=== PATIENT | male | born 1975 | race Caucasian/White ===

== ENCOUNTER 2016-12-31 22:05 | Emergency (ER) | payer SELFPAY ==
[~2016-12-31 22:05] MED LIST: ALBUTEROL20 ml INH; AZITHROMYCIN250 MG PO; AZITHROMYCIN500 MG PO; BENZONATATE PO; FOLIC ACID PO; MEDROL DOSEPAK4 MG PO; MELOXICAM15 MG PO; MOBIC15 MG PO; MULTI-VITAMIN1 EAC1 PO; NICOTINE TRANSD21 MG EXT; NO MEDICATIONS; ROBITUSSIN A-C S5 ML PO; THIAMINE HCL100 M1 PO
== END 2016-12-31 23:09 | disposition home or self-care (01) ==
LOC: CED 22:05
DX: R04.2 Hemoptysis (principal); F17.210 Nicotine dependence, cigarettes, uncomplicated
CPT/HCPCS: 99284

== ENCOUNTER 2017-01-18 09:12 | Emergency (ER) | payer SELFPAY ==
[2017-01-18] MEDS ORDERED: NO MEDICATIONS (09:18)
[2017-01-18 10:10] LABS: BILIRUBIN, DIRECT 0.1 mg/dL (0.0-0.2); BILIRUBIN,INDIRECT 0.8 mg/dL (0.0-0.9); BILIRUBIN,TOTAL 0.9 mg/dL (0.2-2.0); BUN/CREATININE RATIO 11.66; CALCIUM SERUM 8.7 mg/dL (8.4-10.2); CREATININE SERUM 0.6 mg/dL (0.6-1.4); GLOM FILT RATE Estimated 124.9 mL/min (>60); POTASSIUM 3.8 mmol/L (3.5-5.1); PROTEIN TOTAL SERUM 8.1 g/dL (6.0-8.3)
[2017-01-18 10:13] LABS: BASOPHIL% 0.8 % (0-2.5); EOSINOPHIL% 0.2 % (0.0-7.0); HEMATOCRIT 45.9 % (38.0-50.0); HEMOGLOBIN 16.2 gm/dL (13.0-16.0); LYMPHOCYTE# 1.1 X10e3 (1.0-3.5); MEAN CELL VOLUME 101.1 FL (83-96); MEAN CORPUSCULAR HEMOGLOBIN 35.6 PG (28-34); MEAN CORPUSCULAR HGB CONC 35.2 g/dL (30-36); MEAN PLATELET VOLUME 7.2 FL (6.5-11.5); MONOCYTE# 0.6 X10e3 (0-1.0); MONOCYTE% 13.2 % (3.0-12.0); NEUTROPHIL# 2.6 X10e3 (1.5-7.1); NEUTROPHIL% 60.8 % (40-75); PLATELET COUNT 173 X10e3 (140-420); RED BLOOD COUNT 4.54 X10e (3.90-5.60); RED CELL DISTRIBUTION WIDTH 13.2 % (11.0-15.5); WHITE BLOOD COUNT 4.3 X10e3 (4.0-10.5)
[2017-01-18 10:14] LABS: DIFF IND NO
== END 2017-01-18 11:16 | disposition home or self-care (01) ==
LOC: SED 09:12
PROVIDERS: Emergency Medicine
DX: K92.2 Gastrointestinal hemorrhage, unspecified (principal); R04.0 Epistaxis; F17.210 Nicotine dependence, cigarettes, uncomplicated
CPT/HCPCS: 36415; 80048; 80076; 83690; 85025; 96361; 96374; 96375; 99283; C9113; J2405

== ENCOUNTER 2017-03-06 22:49 | Emergency (ER) | payer SELFPAY ==
[~2017-03-06] VITALS: Ht 182.9 cm; Wt 63.5 kg
--- NOTE | ~2017-03-06 | CR173 ---
[facility]. [facility] A Service of [facility] & [facility] RADIOLOGY TEXT RESULTS PATIENT: MELISA LINARES JR LOCATION: SED : 75 UNIT #: [id number] AGE: [address]: Angelica Minor SEX: M ORDER DR: [id number] [place] [id number] E MR#: [id number] Acc #: [id number] NAME: MELISA LINARES JR : 1975 SEX: M STUDY DATE/TIME: 03/06/2017 23:28 UNIT: SED ROOM: STUDY DESCRIPTION: CR Knee 3 Views Rt Attending Physician: Angelica Minor Pa-C Ordering Physician: Angelica Minor Pa-C Primary Care Physician: Armin Holland M.D. MEDICAL IMAGING REPORT This report is preliminary unless electronic signature is present. EXAM Right knee, 03/06/2017. HISTORY 41-year-old male in the ED complaining of persistent right knee pain after falling off a ladder about 2 weeks ago. TECHNIQUE Three-view right knee series. FINDINGS The examination is negative. No fracture, dislocation, arthropathy or other osseous abnormality. No visible joint effusion. IMPRESSION Negative right knee series. Dictated by... Abdias Cobb M.D. THIS IS AN ELECTRONICALLY VERIFIED REPORT Abdias Cobb M.D. at 03/07/2017 9:45 PM KEYLAW/demian TD: 03/07/2017 10:31 JOB #: [id number] MEDICAL IMAGING REPORT Page 1 of 1
== END 2017-03-07 01:03 | disposition home or self-care (01) ==
LOC: SED 22:49
DX: M25.561 Pain in right knee (principal); F17.200 Nicotine dependence, unspecified, uncomplicated
CPT/HCPCS: 29530; 73562; 99284